=== PATIENT | female | born 1965 ===

== ENCOUNTER 2024-08-29 01:35 | Emergency (ER) | payer OTHER, SELFPAY ==
[2024-08-29] VITALS (10 sets, daily range): BP systolic 111–135; BP diastolic 57–92; PULSE 46–101; RESP 20; TEMP 36.6–37.1; O2SAT 91–98; BMI 29.0
--- NOTE | 2024-08-29 02:19 | ED_ITS ---
HPI - Abdominal Pain General Chief Complaint: Abdominal Pain Stated Complaint: Lower abdominal pain since last night Time Seen by Provider: 08/29/24 02:18 Source: patient Mode of arrival: Ambulatory History of Present Illness HPI narrative: Patient is a 59-year-old female with a history of high blood pressure who presents with cramping abdominal pain since last night. The pain is intermittent and severe when it occurs. She reports a history of diverticulitis and constipation. She denies fever, recent antibiotic use, pain with urination, vaginal bleeding, discharge, vomiting, or diarrhea. She had a small bowel movement this morning. She has no history of abdominal surgeries and denies any other significant medical history. Review of Systems Review of Systems Narrative: Constitutional: Reports chills. Gastrointestinal: Reports cramping abdominal pain, constipation, and a small bowel movement this morning. Genitourinary: Denies pain with urination, vaginal bleeding, or discharge. Respiratory: No cough or shortness of breath. Cardiovascular: No chest pain or palpitations. Musculoskeletal: No joint pain or swelling. Neurologic: No headaches or dizziness. Skin: No rashes or lesions. Psychiatric: No anxiety or depression. Patient History Social History Smoking Status: Current every day smoker Smoking Status: Current every day smoker tobacco type: cigarettes Exam Narrative Exam Narrative: General: Well appearing, well nourished, in no distress. Appears in pain. Skin: Good turgor, no rash, unusual bruising or prominent lesions. Head: Normocephalic, atraumatic. HEENT: Conjunctiva clear, EOM intact, PERRL, Mucous membranes moist. Neck: Supple, normal ROM. Heart: Regular rate and rhythm, no murmur or gallop or rubs. Lungs: Clear to auscultation. No rales, rhonchi, or wheezes. Abdomen: Soft, tender in the lower abdomen. no rebound tenderness, mild guarding Bowel sounds normal. No mass or hernia. Back: Spine normal without deformity or tenderness, no CVA tenderness. Extremities: No deformities, edema. Peripheral pulses intact. Neurologic: CN 2-12 normal. Normal sensation and motor exam. Psychiatric: Oriented X3. Normal mood and affect. Initial Vital Signs Initial Vital Signs: Vital Signs Temperature 98.7 F 08/29/24 01:50 Pulse Rate 101 H 08/29/24 01:50 Respiratory Rate 20 08/29/24 01:50 Blood Pressure 135/71 08/29/24 01:50 Pulse Oximetry 98 08/29/24 01:50 Oxygen Delivery Method Room Air 08/29/24 01:50 Course Orders Ordered: ED Orders 08/29/24 02:09 Complete Blood Count AUTO DIFF Stat Comprehensive Metabolic Panel Stat Lipase Stat 08/29/24 02:29 CT abdomen pelvis w con Stat Vital Signs Vital signs: Vital Signs - 8 hr 08/29/24 01:50 08/29/24 02:01 08/29/24 02:30 Temperature 98.7 F Pulse Rate 101 H 96 H 93 H Respiratory Rate 20 Blood Pressure 135/71 Pulse Oximetry 98 96 98 Oxygen Delivery Method Room Air 08/29/24 03:00 08/29/24 03:08 08/29/24 03:08 Temperature Pulse Rate 89 46 L Respiratory Rate Blood Pressure 125/57 L Pulse Oximetry 91 95 Oxygen Delivery Method MDM - Abdominal Pain Lab Data 08/29/24 02:09 08/29/24 02:09 Labs: Lab Results 08/29/24 Range/Units 02:09 WBC 6.5 (4.5-11.0) X10^3/uL RBC 4.07 (4.0-5.2) X10^6/uL Hgb 13.7 (12.0-16.0) g/dL Hct 39.7 (36-46) % MCV 97.5 (80-100) fL MCH 33.8 (26-34) PG MCHC 34.6 (30-36) % RDW 13.7 (11.6-14.8) % Plt Count 182 (150-400) X10^3/uL Neut % (Auto) 68.4 (50-75) % Lymph % (Auto) 15.8 L (25-40) % [place] % (Auto) 12.4 (3-14) % Eos % (Auto) 2.4 (2-4) % Baso % (Auto) 1.0 (0-2) % Neut # (Auto) 4400 (9561-9409) /uL Lymph # (Auto) 1000 L (5065-9094) /uL [place] # (Auto) 800 (0-900) /uL Eos # (Auto) 200 (0-450) /uL Baso # (Auto) 100 (0-100) /uL Sodium 134 L (137-145) mmol/L Potassium 4.6 (3.4-5.1) mmol/L Chloride 102 (98-107) mmol/L Carbon Dioxide 23 (22-32) mmol/L BUN 28 H (7-17) mg/dL Creatinine 1.12 H (0.52-1.04) mg/dL Estimated GFR 57 L (>60) mL/min BUN/Creatinine Ratio 25.0 H (6-22) Glucose 94 (70-100) mg/dL Calcium 9.1 (8.4-10.2) mg/dL Total Bilirubin 0.3 (0.2-1.3) mg/dL AST 42 H (14-36) IU/L ALT 27 (<35) IU/L Alkaline Phosphatase 69 (38-126) U/L Ammonia Cancelled Total Protein 7.4 (6.3-8.2) g/dL Albumin 4.3 (3.5-5.0) g/dL Globulin 3.1 (1.7-4.1) g/dL Albumin/Globulin Ratio 1.4 (1.0-2.8) Lipase 140 (23-300) U/L I reviewed patient's laboratory study which is overall reassuring, no significant elevations in LFTs or alkaline phosphatase, lipase is not elevated doubt biliary or pancreatic pathology as cause of patient's symptoms given reassuring labs and lower quadrant abdominal pain rather than upper quadrant abdominal pain. - Patient has no significant leukocytosis, anemia or other significant abnormalities requiring ED intervention on lab work Point of care testing: Urine Dip Bedside Urine Glucose Negative Bedside Urine Bilirubin - Negative Bedside Urine Ketone +/- 5 Urine Specific [place] 1.015 Bedside Urine Occult Blood - Negative Bedside Urine pH 6.0 Bedside Urine Protein - Negative Bedside Urine Urobilinogen - Negative Bedside Urine Nitrite - Negative Bedside Urine Leukocytes - Negative Esterase urinalysis negative Imaging Data CT scan - abdomen/pelvis: My Impression: no acute intra-abdominal pathology Radiologist's Impression: radiologist shows moderate sigmoid diverticulosis without diverticulitis, mild generalized wall thickening without inflammatory stranding, no obstruction, no fluid collection, no findings of appendicitis, MDM Narrative Medical decision making narrative: INITIAL EVALUATION AND PLAN: - Obtain a urine sample to check for infection. - Order a CT scan to evaluate for diverticulitis, appendicitis, kidney stones, or bowel obstruction. - Monitor and manage high blood pressure as needed. - Differential diagnosis includes but is not limited to: diverticulitis, appendicitis, kidney stones, bowel obstruction. on initial evaluation patient is in no acute distress but does have pain on palpation of the lower quadrants, does not believe that she is currently 59 and gone through menopause denies any vaginal discharge vaginal bleeding. Concern she may be constipated per her report/ has a history of diverticulosis / diverticulitis. We will obtain lab work and CT imaging to further evaluate etiology of her abdominal pain. Will obtain urine if possible. - urine studies negative patient's imaging completed as documented above, no signs of diverticulitis or appendicitis, no signs of intra-abdominal abscess or other acute pathology requiring intervention patient does have some generalized bowel wall edema, but they do not believe that this is indicative of an infectious process, recommend patient undergo colonoscopy for evaluation in the future. I discussed this with the patient who will call her GI doctor in order to schedule a colonoscopy - doubt kidney stones in the context of no flank pain, urine studies without significant blood. no signs of obstruction on CT on reassessment patient still has a soft nondistended abdomen without significant guarding or rebound tenderness, she states that her pain is improved into sleeping comfortably whenever I entered the room. We discussed return precautions and patient was discharged from the emergency department Discharge Plan Departure Patient Disposition: Home Clinical Impression: Abdominal pain Activity Restrictions/Additional Instructions: you were seen in the emergency department today for abdominal pain, fortunately your lab work and imaging was reassuring. If you have worsening symptoms please return to the emergency department for re-evaluation, your CT showed no signs of appendicitis or diverticulitis however it did show some generalized bowel wall thickening, please call your GI doctor and have a colonoscopy scheduled for further evaluation Stand Alone Forms: Patient Portal/API/Survey
[2024-08-29 02:27] LABS: Add Manual Diff / Slide Review NO; Basophils Absolute Auto 100 /uL (0-100); Eosinophils Absolute Auto 200 /uL (0-450); Eosinophils Percent Auto 2.4 % (2-4); Hematocrit 39.7 % (36-46); Hemoglobin 13.7 g/dL (12.0-16.0); Lymphocytes Absolute Auto 1000 /uL (1100-4500); Lymphocytes Percent Auto 15.8 % (25-40); Mean Corpuscular HGB Conc 34.6 % (30-36); Mean Corpuscular Hemoglobin 33.8 PG (26-34); Mean Corpuscular Volume 97.5 fL (80-100); Monocytes Absolute Auto 800 /uL (0-900); Monocytes Percent Auto 12.4 % (3-14); Neutrophils Absolute Auto 4400 /uL (1500-7000); Neutrophils Percent Auto 68.4 % (50-75); Platelet Count 182 X10^3/uL (150-400); Red Blood Cell Count 4.07 X10^6/uL (4.0-5.2); Red Cell Distribution Width 13.7 % (11.6-14.8); White Blood Cell Count 6.5 X10^3/uL (4.5-11.0)
--- NOTE | 2024-08-29 02:29 | DI.CT.S_ITS ---
PROCEDURE: CT ABDOMEN PELVIS W CON INDICATIONS: diverticulitis,appy,obstruction TECHNIQUE: After the administration of intravenous contrast, axial sections acquired from the lung bases to the pubic symphysis. Coronal and sagittal reformats were performed. For radiation dose reduction, the following was used: automated exposure control, adjustment of mA and/or kV according to patient size. COMPARISON: None. FINDINGS: Image quality: Diagnostic. Lower Chest: No significant findings. ABDOMEN: Liver: Small subcentimeter hepatic likely cysts Gallbladder: No radiopaque gallstones or wall thickening. Biliary ducts: No biliary dilation. Pancreas: No ductal dilation. Spleen: Size is within normal limits. Adrenal Glands: No adrenal nodules. Kidneys and Ureters: No hydronephrosis. No solid mass. No complex renal cystic lesion which requires follow up. Stomach and Bowel: Normal colonic caliber, without significant wall thickening. Multiple diverticula arise from the sigmoid colon without evidence of diverticulitis. Peritoneum: No abnormal intraperitoneal fluid. No free air. Ventral Wall: No significant ventral hernia. Abdominal Nodes: No retroperitoneal or mesenteric adenopathy by size criteria. Vessels: Aortic atherosclerotic vascular calcification noted without evidence of aneurysm. PELVIS: Pelvic Organs: Unremarkable. Bladder: No bladder wall thickening, accounting for underdistention. Pelvic Nodes: No enlarged lymph nodes. Miscellaneous: No inguinal hernias are seen. Bones: Degenerative disc disease and arthropathy noted in lower lumbar spine. IMPRESSION: No acute CT findings in the abdomen and pelvis. No evidence of diverticulitis, appendicitis or bowel obstruction Note: This final report is concordant with the preliminary after-hours interpretation provided by [facility] Approved by: Luis Eduardo Barrientos M.D. on 08/29/2024 at 8:29
[2024-08-29 02:38] LABS: Alanine Aminotransferase 27 IU/L (<35); Albumin 4.3 g/dL (3.5-5.0); Albumin Globulin Ratio 1.4 (1.0-2.8); Alkaline Phosphatase 69 U/L (38-126); Aspartate Aminotransferase 42 IU/L (14-36); Bilirubin Total 0.3 mg/dL (0.2-1.3); Blood Urea Nitrogen 28 mg/dL (7-17); Calcium 9.1 mg/dL (8.4-10.2); Carbon Dioxide 23 mmol/L (22-32); Chloride 102 mmol/L (98-107); Estimated Glomerular Filt Rate 57 mL/min (>60); Globulin 3.1 g/dL (1.7-4.1); Glucose 94 mg/dL (70-100); HEMOLYSIS < 15 (0-50); Lipase 140 U/L (23-300); Potassium 4.6 mmol/L (3.4-5.1); Sodium 134 mmol/L (137-145); Total Protein 7.4 g/dL (6.3-8.2)
== END 2024-08-29 04:40 | disposition home or self-care (01) ==
PROVIDERS: Emergency Provider Emergency Medicine; Family Provider Orthopaedic Surgery
DX: R10.30 Lower abdominal pain, unspecified (principal); Z87.19 Personal history of other diseases of the digestive system
CPT/HCPCS: 36415; 74177; 80053; 81003; 83690; 85025; 99283; 99284; Q9967